=== PATIENT | male | born 1955 | race Caucasian/White ===

== ENCOUNTER 2019-05-02 13:17 | Emergency (ER) | payer BC ==
[2019-05-02 13:25] VITALS: Wt 106.8 kg
[2019-05-02] MEDS ORDERED: LISINOPRIL5 MG PO (13:26)
[2019-05-02] MEDS ORDERED: PREDNISONE20 MG PO (15:22)
[2019-05-02 16:00] VITALS: BP 120/65
== END 2019-05-02 16:01 | disposition home or self-care (01) ==
LOC: D.ER 13:17
DX: L50.3 Dermatographic urticaria (principal); R07.9 Chest pain, unspecified